=== PATIENT | female | born 1980 | race Two or more races ===

== ENCOUNTER 2017-08-05 10:31 | Outpatient (CLI) | payer OTHER ==
[~2017-08-05 10:31] MED LIST: CATAPRES0.3 MG; DILTIAZEM ER240 M1
== END 2017-08-05 15:58 | disposition home or self-care (01) ==
LOC: TOM 10:31
DX: J45.901 Unspecified asthma with (acute) exacerbation (principal); J45.50 Severe persistent asthma, uncomplicated

== ENCOUNTER 2018-06-26 23:03 | Emergency (ER) | payer OTHER ==
[~2018-06-26] VITALS: Ht 160 cm; Wt 158.8 kg
[2018-06-27] MEDS ORDERED: KETO10TA2 PO (04:03)
[2018-06-27] MEDS ORDERED: ORPHENADRINE C100 MG PO (04:03)
== END 2018-06-27 04:10 | disposition home or self-care (01) ==
LOC: ER 23:03
DX: J45.998 Other asthma (principal); M94.0 Chondrocostal junction syndrome [Tietze]

== ENCOUNTER 2018-07-18 20:27 | Emergency (ER) | payer OTHER ==
[~2018-07-18] VITALS: Ht 172.7 cm; Wt 158.8 kg
[~2018-07-18 20:27] MED LIST changes: +KETO10TA2 PO; +ORPHENADRINE C100 MG PO
[2018-07-18] MEDS ORDERED: SINGULAIR 10MG10 MG PO (20:49)
[2018-07-18] MEDS ORDERED: PREDNISONE20 MG PO (20:49)
[2018-07-18] MEDS ORDERED: LASIX40 MG PO (20:49)
[2018-07-18] MEDS ORDERED: FOLIC ACID1 MG PO (20:49)
[2018-07-18] MEDS ORDERED: FIORICET PO (20:51)
[2018-07-18] MEDS ORDERED: CALAN80 MG PO (20:52)
== END 2018-07-19 11:57 | disposition home or self-care (01) ==
LOC: ER 20:27
DX: J11.1 Influenza due to unidentified influenza virus with other respiratory manifestations (principal); J98.01 Acute bronchospasm

== ENCOUNTER 2018-07-20 23:25 | Inpatient (IN) | payer OTHER ==
[~2018-07-20] VITALS: Ht 152.4 cm; Wt 158.8 kg
[~2018-07-20 23:25] MED LIST changes: +CALAN80 MG PO; +FIORICET PO; +FOLIC ACID1 MG PO; +LASIX40 MG PO; +PREDNISONE20 MG PO; +SINGULAIR 10MG10 MG PO
[2018-07-21] MEDS ORDERED: BUPAP 50 MG-301 EACH PO (11:25)
[2018-07-30] MEDS ORDERED: PREDNISONE20 MG PO (11:35)
[2018-07-30] MEDS ORDERED: LASIX40 MG PO (11:35)
[2018-07-30] MEDS ORDERED: SINGULAIR 10MG10 MG PO (11:35)
[2018-07-30] MEDS ORDERED: FOLIC ACID1 MG PO (11:36)
[2018-07-30] MEDS ORDERED: LOSARTAN POTASS50 MG PO (11:37)
[2018-07-30] MEDS ORDERED: NIFEDIPINE ER30 MG PO (11:37)
[2018-07-30] MEDS ORDERED: Neurin-Sl Tablet Sl SL (11:38)
[2018-07-30] MEDS ORDERED: Theo-24 PO (11:38)
== END 2018-07-30 12:00 | disposition home or self-care (01) | DRG 190 ==
LOC: ER 23:25 → MEDJ 07-21 09:49
PROVIDERS: ADMIT Internal Medicine
PROC: B54DZZZ Ultrasonography of Bilateral Lower Extremity Veins (ICD-10-PCS; 2018-07-21)
PROC: BW40ZZZ Ultrasonography of Abdomen (ICD-10-PCS; 2018-07-21)
PROC: 3E0F7GC Introduction of Other Therapeutic Substance into Respiratory Tract, Via Natural or Artificial Opening (ICD-10-PCS; 2018-07-21)
PROC: 4A033R1 Measurement of Arterial Saturation, Peripheral, Percutaneous Approach (ICD-10-PCS; 2018-07-21)
PROC: 8E0ZXY6 Isolation (ICD-10-PCS; 2018-07-21)
PROC: B246ZZZ Ultrasonography of Right and Left Heart (ICD-10-PCS; 2018-07-22)
PROC: BW24ZZZ Computerized Tomography (CT Scan) of Chest and Abdomen (ICD-10-PCS; principal; 2018-07-24)
DX: J44.1 Chronic obstructive pulmonary disease with (acute) exacerbation (principal); J10.00 Influenza due to other identified influenza virus with unspecified type of pneumonia; J45.51 Severe persistent asthma with (acute) exacerbation; E87.2 Acidosis; I11.9 Hypertensive heart disease without heart failure; Z88.0 Allergy status to penicillin; E66.01 Morbid (severe) obesity due to excess calories; R60.0 Localized edema; I87.2 Venous insufficiency (chronic) (peripheral); S30.0XXA Contusion of lower back and pelvis, initial encounter; S10.83XA Contusion of other specified part of neck, initial encounter; S40.011A Contusion of right shoulder, initial encounter; W18.2XXA Fall in (into) shower or empty bathtub, initial encounter

== ENCOUNTER → 2018-08-05 | Emergency (ER) | payer OTHER ==
[~2018-08-05] VITALS: Ht 165.1 cm; Wt 158.8 kg
[~2018-08-05] MED LIST changes: +BUPAP 50 MG-301 EACH PO; +LOSARTAN POTASS50 MG PO; +MACROBID 100 M100 MG PO; +NIFEDIPINE ER30 MG PO; +Neurin-Sl Tablet Sl SL; +Theo-24 PO
== END | disposition home or self-care (01) ==
LOC: ER 12:18
DX: K59.09 Other constipation (principal)

== ENCOUNTER → 2018-08-11 | Emergency (ER) | payer OTHER ==
[~2018-08-11] VITALS: Ht 157.5 cm; Wt 158.8 kg
[~2018-08-11] MED LIST changes: +ALBUTEROL0.63 MG/3
== END | disposition home or self-care (01) ==
LOC: ER 00:35
DX: R06.02 Shortness of breath (principal); N39.0 Urinary tract infection, site not specified

== ENCOUNTER 2018-08-12 19:59 | Emergency (ER) | payer OTHER ==
[~2018-08-12] VITALS: Ht 157.5 cm; Wt 158.8 kg
[~2018-08-12 19:59] MED LIST changes: -ALBUTEROL0.63 MG/3
[2018-08-12] MEDS ORDERED: ALBUTEROL0.63 MG/3 (20:16)
== END 2018-08-13 14:18 | disposition home or self-care (01) ==
LOC: ER 19:59
DX: M79.662 Pain in left lower leg (principal); M79.661 Pain in right lower leg; J18.9 Pneumonia, unspecified organism

== ENCOUNTER 2018-08-16 15:52 | Emergency (ER) | payer OTHER ==
[~2018-08-16] VITALS: Ht 157.5 cm; Wt 158.8 kg
[~2018-08-16 15:52] MED LIST changes: +ALBUTEROL0.63 MG/3
== END 2018-08-16 19:07 | disposition home or self-care (01) ==
LOC: ER 15:52
DX: M79.89 Other specified soft tissue disorders (principal); E66.01 Morbid (severe) obesity due to excess calories

== ENCOUNTER 2019-08-16 07:02 | Emergency (ER) | payer OTHER ==
[~2019-08-16] VITALS: Ht 160 cm; Wt 158.8 kg
[2019-08-16] MEDS ORDERED: ULTRAM50 MG (07:46)
[2019-08-16] MEDS ORDERED: HYZAAR 100-12.1 EACH (07:47)
== END 2019-08-16 13:10 | disposition home or self-care (01) ==
LOC: ER 07:02
DX: J45.52 Severe persistent asthma with status asthmaticus (principal); B96.0 Mycoplasma pneumoniae [M. pneumoniae] as the cause of diseases classified elsewhere; R06.02 Shortness of breath; Z03.818 Encounter for observation for suspected exposure to other biological agents ruled out

== ENCOUNTER 2020-05-10 22:51 | Emergency (ER) | payer OTHER ==
[~2020-05-10] VITALS: Ht 162.6 cm; Wt 163.3 kg
[~2020-05-10 22:51] MED LIST changes: +HYZAAR 100-12.1 EACH; +ULTRAM50 MG
[2020-05-11] MEDS ORDERED: ULTRAM50 MG PO (10:36)
[2020-05-11] MEDS ORDERED: PEPCID AC20 MG PO (10:36)
[2020-05-11] MEDS ORDERED: LEVSIN/SL0.125 MG SL (10:36)
== END 2020-05-11 10:53 | disposition home or self-care (01) ==
LOC: ER 22:51
DX: R10.13 Epigastric pain (principal)

== ENCOUNTER 2020-05-31 04:46 | Emergency (ER) | payer OTHER ==
[~2020-05-31] VITALS: Ht 162.6 cm; Wt 163.3 kg
[~2020-05-31 04:46] MED LIST changes: +LEVSIN/SL0.125 MG SL; +PEPCID AC20 MG PO; +ULTRAM50 MG PO
[2020-06-18] MEDS ORDERED: ZITHROMAX500 MG PO (16:25)
[2020-06-18] MEDS ORDERED: MEDROLPACK PO (16:25)
== END 2020-05-31 10:40 | disposition home or self-care (01) ==
LOC: ER 04:46
DX: R51.9 Headache, unspecified (principal); R53.83 Other fatigue; M54.6 Pain in thoracic spine; J44.1 Chronic obstructive pulmonary disease with (acute) exacerbation

== ENCOUNTER 2020-07-23 21:25 | Emergency (ER) | payer OTHER ==
[~2020-07-23] VITALS: Ht 162.6 cm; Wt 158.8 kg
[~2020-07-23 21:25] MED LIST changes: +MEDROLPACK PO; +ZITHROMAX500 MG PO
[2020-07-23] MEDS ORDERED: NEURONTIN600 M1 PO (21:52)
== END 2020-07-24 03:11 | disposition home or self-care (01) ==
LOC: ER 21:25
DX: R00.2 Palpitations (principal); M79.89 Other specified soft tissue disorders; R60.0 Localized edema